=== PATIENT | female | born 1980 | race Caucasian/White ===

== ENCOUNTER → 2020-03-27 17:47 | Outpatient (CLI) | payer OTHER, SELFPAY ==
--- NOTE | ~2020-03-27 | MM_ITS ---
EXAMINATION: MM screening nir BI w emerald HISTORY: Screening TECHNIQUE: Craniocaudal and mediolateral oblique 3-D tomosynthesis images were obtained and synthetic 2-D images were generated. CAD analysis was submitted and interpreted. COMPARISON: No prior mammogram is available for comparison at this institution. BREAST PARENCHYMAL COMPOSITION: The breasts are heterogeneously dense, which may obscure small masses . FINDINGS: There is no evidence of suspicious mass, calcification, or architectural distortion to sugg est malignancy in either breast. There has been no suspicious interval change. IMPRESSION: 1. No mammographic evidence of malignancy. 2. Recommend routine screening mammography in one year. 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
== END ==
PROVIDERS: Visit Provider Emergency Medicine
DX: Z12.31 Encounter for screening mammogram for malignant neoplasm of breast (principal)
CPT/HCPCS: 77063; 77067

== ENCOUNTER 2020-04-19 00:41 | Outpatient (CLI) | payer OTHER, SELFPAY ==
[2020-04-19 21:25] LABS: SARS-CoV-2 RNA PCR Negative
== END 2020-04-19 00:42 | disposition home or self-care (01) ==
LOC: ANHCOVIDDT 00:42
PROVIDERS: PCP Emergency Medicine; Visit Provider Internal Medicine Gastroenterology
DX: Z01.812 Encounter for preprocedural laboratory examination (principal); Z20.828 Contact with and (suspected) exposure to other viral communicable diseases
CPT/HCPCS: 87635; C9803; U0003

== ENCOUNTER 2020-04-22 01:36 | Day surgery (SDC) | payer OTHER, SELFPAY ==
[2020-04-11 12:56] VITALS: BMI 35.2
[2020-04-22 09:10] VITALS: BP 129/67; PULSE 75; RESP 16; TEMP 36.4; O2SAT 100
[2020-04-22] MEDS: LACTATED RINGERS 1,000 ML 150 ML IV CONT (09:13)
--- NOTE | 2020-04-22 09:40 | WPDANESEPPF ---
Anes - Initial Pre Proc Eval Procedure: Operation Date: 04/22/20 11:00 Proposed Procedures p Colonoscopy - Brayden Pena MD Date/Time: 04/22/20 09:40 Surgeon: Brayden Pena MD Pre Op Diagnosis: constipation Patient Data Age: 40 Gender: F Height: 5 ft 7 in Weight: 102.9 kg Last Vital Signs Temp 97.5 F L 04/22/20 09:10 Pulse 75 04/22/20 09:10 Resp 16 04/22/20 09:10 BP 129/67 04/22/20 09:10 Pulse Ox 100 04/22/20 09:10 Allergies Allergy/AdvReac Type Severity Reaction Status Date / Time No Known Allergies Allergy Unknown Verified 04/22/20 09:09 Home Medications Medication Instructions Recorded Confirmed Type polyethylene glycol 3350 [Miralax] 17 g PO DAILY 04/11/20 04/11/20 History Patient hx anesthesia problems: none Family hx anesthesia problems: none [facility] Past Medical History Medical History (Updated 04/22/20 @ 09:14 by Twin Combs MD) GERD (gastroesophageal reflux disease) Family History Family History Father Diabetes mellitus Mother Hypertension Social History Social History Smoking packs per day: 1 Smoking cigarettes per day: 20.0 Years smoked: 15 Smoking pack-years: 15.00 Smoking status: Former smoker Tobacco type: cigarettes Second hand tobacco smoke exposure: No Alcohol intake: current Drinks per week: 1 Substance use: never Substance use type: does not use Living arrangements: with family Spiritual care concerns: No Anes - Eval Final PreProcedure Day of Procedure 04/22/20 09:40 Patient weight: overweight Heart: regular rate and rhythm Lungs: clear to auscultation Airway: Mallampati scale class II Neurological: alert and oriented Last oral intake: >/= 8 hours ASA classification: II Emergent: no Anesthetic plan: proceed Anesthesia type and monitoring: general GIVS and standard monitoring Informed Consent: The patient's anesthetic plan and its attendant risks and benefits were discussed with the patient/family/POA. Questions were solicited and answers provided to the satisfaction of the patient/family/POA.
--- NOTE | 2020-04-22 09:57 | PM.HPGS ---
History of Present Illness History of Present Illness Consent: Risks, benefits, and alternatives have been discussed and questions answered. Patient agrees to proceed with procedure. Chief complaint: constipation Narrative: Maria A Burkett is a 40 year old female with constipation, never had a colonoscopy. Mother with colon cancer. Review of Systems Constitutional: Constitutional: Denies headache(s) and Denies weakness Eyes: Eyes: Denies blurry vision ENT: Reports Normal hearing present, Denies headache(s) and Denies neck pain Cardiovascular: Cardiovascular: Denies chest pain and Denies dyspnea Respiratory: Respiratory: Denies dyspnea Gastrointestinal: Gastrointestinal: Reports no additional gastrointestinal complaints Genitourinary: Genitourinary: Denies dysuria Musculoskeletal: Musculoskeletal: Denies neck pain Integumentary/Breasts: Skin/Breast: Denies dry skin Neurologic: Reports Normal hearing present, Denies headache(s) and Denies weakness Psychiatric: Psychiatric: Denies anxiety Endocrine: Endocrine: Denies change in body appearance Hematologic/Lymphatic: Hematologic/Lymphatic: Denies easy bleeding Allergic/Immunologic: Allergic/Immunologic: Denies urticaria PMF Past Medical History Medical History (Updated 04/22/20 @ 09:58 by Brayden Pena MD) Constipation GERD (gastroesophageal reflux disease) Family History Family History Father Diabetes mellitus Mother Hypertension Social History Social History Smoking packs per day: 1 Smoking cigarettes per day: 20.0 Years smoked: 15 Smoking pack-years: 15.00 Smoking status: Former smoker Tobacco type: cigarettes Second hand tobacco smoke exposure: No Alcohol intake: current Drinks per week: 1 Substance use: never Substance use type: does not use Living arrangements: with family Spiritual care concerns: No Meds Home Medications and Allergies Home Medications Medication Instructions Recorded Confirmed Type polyethylene glycol 3350 [Miralax] 17 g PO DAILY 04/11/20 04/11/20 History Allergies Allergy/AdvReac Type Severity Reaction Status Date / Time No Known Allergies Allergy Unknown Verified 04/22/20 09:09 Vital Signs Vital Signs - 24 hr 04/22/20 09:10 Temperature 97.5 F L Pulse Rate 75 Respiratory Rate 16 Blood Pressure 129/67 Pulse Oximetry 100 Exam Const: General: comfortable and no acute distress HENMT: General nose exam: Normal nares present Eyes: General: appearance normal, both eyes and all related structures Neck: Neck: no JVD Resp: Auscultation: clear to auscultation bilaterally Cardio: Rate: regular rate Rhythm: regular rhythm GI: Inspection: non-distended GI Palp: Yes Soft to palpation Skin: General skin exam: normal color Neuro: General: gait normal Speech: normal speech Extrem: General: normal to inspection Psych: Mental Status: mental status grossly normal Assessment and Plan Assessment and plan (1) Constipation: Code(s): K59.00 - Constipation, unspecified Status: Acute Assessment and Plan: will proceed with colonoscopy
[2020-04-22 10:14] VITALS: BP 97/47; PULSE 68; RESP 20; O2SAT 100
[2020-04-22 10:24] VITALS: BP 91/44; PULSE 71; RESP 15; O2SAT 100
[2020-04-22 10:34] VITALS: BP 108/63; PULSE 71; RESP 19; O2SAT 100
== END 2020-04-22 10:56 | disposition home or self-care (01) ==
PROVIDERS: PCP Emergency Medicine; Visit Provider Internal Medicine Gastroenterology
PROC: 0DJD8ZZ Inspection of Lower Intestinal Tract, Via Natural or Artificial Opening Endoscopic (ICD-10-PCS; CPT 45378; principal; 2020-04-22 11:00)
DX: Z12.11 Encounter for screening for malignant neoplasm of colon (principal); K64.8 Other hemorrhoids; K59.00 Constipation, unspecified; Z80.0 Family history of malignant neoplasm of digestive organs; Z87.891 Personal history of nicotine dependence
CPT/HCPCS: 45378; J2704; J7120

== ENCOUNTER → 2021-03-31 10:04 | Outpatient (CLI) | payer OTHER, SELFPAY ==
--- NOTE | ~2021-03-31 | MM_ITS ---
EXAMINATION: MM screening nir BI w emerald HISTORY: Screening mammogram TECHNIQUE: Craniocaudal and mediolateral oblique 3-D tomosynthesis images were obtained and synthetic 2-D images were generated. CAD analysis was submitted and interpreted. COMPARISON: 03/2020 bilateral screening mammogram BREAST PARENCHYMAL COMPOSITION: There are scattered areas of fibroglandular density. FINDINGS: There is no evidence of suspicious mass, calcification, or architectural distortion to sugg est malignancy in either breast. There has been no suspicious interval change. IMPRESSION: 1. No mammographic evidence of malignancy. 2. Recommend routine screening mammography in one year. 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
== END ==
PROVIDERS: Visit Provider Obstetrics & Gynecology
DX: Z12.31 Encounter for screening mammogram for malignant neoplasm of breast (principal)
CPT/HCPCS: 77063; 77067

== ENCOUNTER → 2022-07-08 12:15 | Outpatient (CLI) | payer OTHER, SELFPAY ==
--- NOTE | ~2022-07-08 | MM_ITS ---
EXAMINATION: MM screening nir BI w emerald HISTORY: Screening mammogram TECHNIQUE: Craniocaudal and mediolateral oblique 3-D tomosynthesis images were obtained and synthetic 2-D images were generated. CAD analysis was submitted and interpreted. COMPARISON: 03/31/2021, 03/2020 bilateral screening mammogram examinations BREAST PARENCHYMAL COMPOSITION: There are scattered areas of fibroglandular density. FINDINGS: There is no evidence of suspicious mass, calcification, or architectural distortion to sugg est malignancy in either breast. There has been no suspicious interval change. IMPRESSION: 1. No mammographic evidence of malignancy. 2. Recommend routine screening mammography in one year. BI-RADS Category 1: Negative Reviewed, dictated and finalized at location A. SETTER HAND
== END ==
PROVIDERS: PCP Internal Medicine; Visit Provider Obstetrics & Gynecology
DX: Z12.31 Encounter for screening mammogram for malignant neoplasm of breast (principal)
CPT/HCPCS: 77063; 77067

== ENCOUNTER 2024-06-21 11:05 | Outpatient (CLI) | payer OTHER, SELFPAY ==
--- NOTE | ~2024-06-21 | MM_ITS ---
EXAMINATION: MM screening nir BI w emerald HISTORY: Screening TECHNIQUE: Craniocaudal and mediolateral oblique 3-D tomosynthesis images were obtained and synthetic 2-D images were generated. CAD analysis was submitted and interpreted. COMPARISON: Comparison to multiple prior studies sequentially, with oldest reviewed study dated 08/2019. BREAST PARENCHYMAL COMPOSITION: Not dense: There are scattered areas of fibroglandular density. FINDINGS: There is no evidence of suspicious mass, calcification, or architectural distortion to sugg est malignancy in either breast. There has been no suspicious interval change. IMPRESSION: 1. No mammographic evidence of malignancy. 2. Recommend routine screening mammography in one year. BI-RADS Category 1: Negative Reviewed, dictated and finalized at location A. 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
== END 2024-06-21 11:06 | disposition home or self-care (01) ==
LOC: MICIMG 11:06
PROVIDERS: PCP Internal Medicine; Visit Provider Obstetrics & Gynecology
DX: Z12.31 Encounter for screening mammogram for malignant neoplasm of breast (principal)
CPT/HCPCS: 77063; 77067

== ENCOUNTER 2024-07-28 01:13 | Day surgery (SDC) | payer OTHER, SELFPAY ==
[2024-07-21 13:52] VITALS: BMI 29.8
--- OUTSIDE RECORDS SUMMARY | 2024-07-28 01:18 | XMS_ITS | Encounter Summary ---
Author Organization [facility] - [facility] Address [address] [place] [address] Care Team Providers Care Bridal Service Sales And Management Name Role Phone Rachna Pruitt MD Primary Care Provider [phone] Encounter Details Date Type Department Care Team (Late st Contact Info) Description 01/29/2022 [facility] [employer] Message Enc [facility] - [address] [address] [address] [place] [address] [employer] Provider Lab results Social History Tobacco Use Types Packs/Day Years Used Date Smoking Tobacco: Never Smokeless Tobacco: Never Alcohol Use Standard Drinks/Week Comments Yes 0 (1 standard drink = 0.6 oz pur e alcohol) 1-2 drinks per month PHQ-2 Answer Date Recorded PHQ-2 Score - If the patient scores above 3, please move on to questions 3-9 0 01/16/2022 Comments No Sex and Gender Information Value Date Recorded Sex Assigned at Not on file Legal Sex Female 11:57 AM CDT Gender Identity Not on file Sexual Orientation Not on file COVID-19 Exposure Response Date Recorded In the last 10 days, have yo u been in contact with someone who was confirmed or suspected to have Coronavirus/COVID-19? No / Unsure 01/28/2022 7:26 AM CDT documented as of this encounter Plan of Treatment Not on file documented as of this encounter Visit Diagnoses Not on filedocumented in this encounter Care Teams Bridal Service Sales And Management Relationship Specialty Start Date End Date Rachna Pruitt MD [address] [place] [address] PCP - General INTERNAL MEDICINE 01/16/22 documented as of this encounter
--- OUTSIDE RECORDS SUMMARY | 2024-07-28 01:18 | XMS_ITS | Continuity of Care Document ---
Author Organization [facility] Address [address] [place] [address] Phone Care Team Providers Care Section Housekeeper Name Role Phone No Information Unavailable Unavailable Allergies, Adverse Reactions, Alerts Substance Reaction Status Criticality No Known Allergies Active No Inform ation Medications Medication Instructions Dosage Effective Dates (start - stop) Status Comments Mirena 20 mcg/24 hour (5 years) intrauterine device - Active Procedures Procedure Date Preven E&m Estab Pt; 18-39 Yr 7 Preven E&m Estab Pt; 18-39 Yr 5 Insrt Intrauterine Device Mirena IUD Preven E&m Estab Pt; 18-39 Yr 4 Venipuncture Hgb; Glycated Lipid Panel Thyroxine; Free General Health Panel Preven E&m Estab Pt; 18-39 Yr 4 Preven E&m Estab Pt; 18-39 Yr 3 Offic/outpt E&m Estab Mod-hi 2 12 Preven E&m Estab Pt; 18-39 Yr 2 General Health Panel Hgb; Glycated Lipid Panel Ua Dip Stick/tablet; Auto W/mi 12 Immuniz Admin; 1/combo Vacc/to 12 Venipuncture Thyroxine; Free Tdap Vaccine Init Preven E&m New Pt; 18-39 Yr 2011 Cytopath Cerv/vag Thin Prep; R 12 Offic/outpt E&m New Mod Sever 1 Advance Directives Directive Yes / No Effective Date File Name No Information Encounters Encounter Description Practice Location Reason(s) For Visit Diagnoses Date Provider Providers Copied on Encounter [facility], [address], [place], [place], [id number] , [place] tel: [phone] No Information 0 No Information Preven E&m Estab Pt; 18-39 Yr [facility], [address], [place], [place], [id number] , [place] tel: [phone] [facility] Encounter for gynecological examination without abnormal finding 7 Ishmael Santacruz. [address], [place], [address], [place]. [phone] Referring Provider: Seb Ruffin, [address], [place], [address]. tel:[phone] Preven E&m Estab Pt; 18-39 Yr [facility], [address], [place], [place], [id number] , [place] tel: [phone] [facility] Encounter for routine gynecological examination 5 Ishmael Neeta. [address], [place], [address], [place]. [phone] Referring Provider: Neeta Quiñones, [address], [place], [address]. tel:[phone] [facility], [address], [place], [place], [id number] , [place] tel:[phone] [facility] IUD (intrauterine device) in placeEncounter for IUD removal and reinsertion - 5 Ishmael Neeta. [address], [place], [address], [place]. tel:[phone] Referring Provider: Seb Ruffin, [address], [place], [address]. tel:[phone] Preven E&m Estab Pt; 18-39 Yr [facility], [address], [place], [place], [id number] , [place] tel: [phone] [facility] EXAM, GYNECOLOGICAL 4 Ishmael Neeta. [address], [place], [address], [place]. tel:[phone] Referring Provider: Seb Ruffin, [address], [place], [address]. tel:[phone] [facility], [address], [place], [place], [id number] , [place] tel: [phone] [facility] No Information 4 Gaurav Grigsby. [address], [place], [place], [address], [place]. tel:[phone] Referring Provider: Seb Ruffin, [address], [place], [address]. tel:[phone] Preven E&m Estab Pt; 18-39 Yr [facility], [address], [place], [place], [id number] , [place] tel: [phone] [facility] EXAM, GENERAL, ROUTINE 4 Gaurav Grigsby. [address], [place], [place], [address], [place]. tel:[phone] Referring Provider: Seb Ruffin, [address], [place], [address]. tel:[phone] Preven E&m Estab Pt; 18-39 Yr [facility], [address], [place], [place], [id number] , [place] tel: [phone] [facility] EXAM, GYNECOLOGICAL 7201 3 Ishmael Neeta. [address], [place], [address], [place]. tel:[phone] Referring Provider: Seb Ruffin, [address], [place], [address]. tel:[phone] Offic/outpt E&m Estab Mod-hi 2 [facility], [address], [place], [place], [id number] , [place] tel: [phone] [facility] SINUSITIS, UNSPECIFIED,(CHR ONIC)ONYCHOMYCOS IS Dec 2 Gaurav Grigsby. [address], [place], [place], [id number], [place]. tel:[phone] Referring Provider: Seb Ruffin, [address], [place], [address]. tel:[phone] Preven E&m Estab Pt; 18-39 Yr [facility], [address], [place], [place], [id number] , [place] tel: [phone] [facility] EXAM, GENERAL, ROUTINEOBESITY,U NSPECIFIEDVACCIN ATION, [DTP] [DtaP] 3-201 2 Gaurav Grigsby. [address], [place], [place], [id number], [place]. tel:[phone] Referring Provider: Seb Ruffin, [address] [place] [address] [address], [place], [address]. tel:[phone] Init Preven E&m New Pt; 18-39 Yr [facility], [address], [place], [place], [id number] , [place] tel: [phone] [facility] HTN,UNSPECIFIEDO BESITY,UNSPECIFI EDOBESITY,UNSPEC IFIEDEXAM, GYNECOLOGICALSCR EEN,CA CERVIXSTATUS POST NEUROPACEMAKER 9 2 Ishmael Neeta. [address], [place], [address], [place]. tel:[phone] Referring Provider: Seb Ruffin, [address], [place], [address]. tel:[phone] Offic/outpt E&m [facility], [address], [place], [place], [address] , [place] tel: [phone] [facility] OSTEOPENIAPITYRI ASIS VERSICOLOR 1 Gaurav Grigsby. [address], [place], [place], [address], [place]. tel:[phone] Referring Provider: Seb Ruffin, [address], [place], [address]. tel:[phone] Family History Family Member Type Diagnosis Age At Onset Grandparents Problem (finding) Heart Disease Father Problem (finding) Diabetes MAT Uncle Problem (finding) Heart Disease MAT Uncle Problem (finding) Hypertension Father Problem (finding) Diabetes Mother Problem (finding) Hypercholesterolemia Father Problem (finding) Hypertension Immunizations Vaccine Date Status Comments Tdap administered Note: Administe red by Sheeba Naylor LVN ; Source: New Immunization Record Payers Payer name Insurance type Covered green party ID Authoriza tion(s) No Information Social History Type Description Quantity Date Captured Comments Alcohol Use Details Unknown Caffeine Use Details 3 cups per day Tobacco Use Status No Information Smoking Status No Information Sex Female Sexual Orientation Straight or heterosexual Chief Complaint And Reason For Visit No Information Reason For Referral Reason For Referral No Information History Of Present Illness Encounter Date Complaint History Of Prese nt Illness No Information Functional Status Date Functional Assessmen t No Information Instructions Date Instruction Additional Infor mation No Information Assessments Type Assessment Date No Information Patient Care Teams Name Effective Dates (start - stop) Status Members No Information
--- OUTSIDE RECORDS SUMMARY | 2024-07-28 01:18 | XMS_ITS | Clinical Summary ---
Author Organization [facility] Address [address] [place] [address] Care Team Providers Care Manager Group Home Name Role Phone Rachna Pruitt MD Primary Care Provider [phone] Allergies No known active allergies Medications FIBER OR Take by mouth daily. Active Polyethylene Glycol 3350 (MIRALAX OR) Take by mouth daily. Active Levonorgestrel (LILETTA, 52 MG,) 20.1 MCG/DAY IUD Active omeprazole (PRILOSEC) 10 MG capsule Take 1 capsule (10 mg total) by mouth daily. Active vitamin D3, cholecalciferol , 125 mcg capsule Take 2 capsules (250 mcg total) by mouth daily. Active SEMAGLUTIDE, 1 MG/DOSE, SC Inject 1.5 mg into the skin once a week. Active Active Problems Problem Noted Date Diagnosed Date Constipation Obese Encounters Date Type Department Care Team Description 06/21/2024 Scan HEALTH INFO SRVCS Scanned, Doc Med Group Mammogram (SCAN) 06/05/2024 1:00 PM RN TEAM LEADER Office Visit [facility] Medical Group Multispecialty Care - [address] [place] [address] Rachna Priutt MD Physical (Pt has not been fasting. Declined flu shot ) 06/05/2024 Travel from Last 3 Months Immunizations Name Administration Dates Next Due PFIZER COVID-19 (ORIGINAL FO RMULATION, PURPLE CAP) mRNA, LNP-S, PF, 30 MCG/0.3 ML DOSE 09/29/2020,09/08/2020 Tdap (Adacel) 01/16/2022 Family History Medical History Relation Comments Diabetes Father Colon Cancer Mother Relation Status Comments Father Alive Mother Alive Social History Tobacco Use Types Packs/Day Years Used Date Smoking Tobacco: Never Smokeless Tobacco: Never Tobacco Cessation:Counseling Given: Yes Comments:counseled by Dr Pruitt Alcohol Use Standard Drinks/Week Comments Yes 0 (1 standard drink = 0.6 oz pur e alcohol) 1-2 drinks per month PHQ-2 Answer Date Recorded Patient Health Questionnaire-2 Score 0 06/05/2024 Comments No Sex and Gender Information Value Date Recorded Sex Assigned at Not on file Legal Sex Female 11:57 AM CDT Gender Identity Not on file Sexual Orientation Not on file Last Filed Vital Signs Vital Sign Reading Time Taken Comments Blood Pressure 117/61 06/05/2024 1:17 PM RN TEAM LEADER Pulse 80 06/05/2024 1:17 PM RN TEAM LEADER Temperature 36.4 C (97.5 F) 06/05/2024 1:17 PM RN TEAM LEADER Respiratory Rate 18 06/05/2024 1:17 PM RN TEAM LEADER Oxygen Saturation 100% 06/05/2024 1:17 PM RN TEAM LEADER Inhaled Oxygen Concentration - - Weight 89.3 kg (196 lb 12.8 oz) 06/05/2024 1:17 PM RN TEAM LEADER Height 170.2 cm (5' 7 ) 06/05/2024 1:17 PM RN TEAM LEADER Body Mass Index 30.82 06/05/2024 1:17 PM RN TEAM LEADER Plan of Treatment Health Maintenance Due Date Last Done Comments Cervical Cancer Screening Pa p Smear (Age 30 to 64) Every 3 Years 1979 Hepatitis B Vaccines (1 of 3 - 19+ 3-dose series) 1998 COVID-19 Vaccine (2023-2 5 season) 2024 09/29/2020, 09/08/2020 Annual Physical 06/05/2025 06/05/2024, 01/16/2022 Influenza Adult (#1) 2025 Postpon ed from 02/22/2024 (Patient Refused) PHQ-2 (Physician [place]) 06/05/2025 06/05/2024 Mammogram Screening 06/21/2026 06/21/2024, 07/08/2022 Cervical Cancer Screening Pa p with HPV Testing (Age 30 to 64) Every 5 Years 12/31/2026 12/31/2021 Cervical Cancer Screening with HPV 12/31/2026 Colorectal Cancer Screening Colonoscopy (10 Years) 04/22/2030 04/22/2020 DTaP, Tdap and Td Vaccines ( 2 - Td or Tdap) 01/17/2032 01/16/2022 Hepatitis C Completed 01/28/2022 PHQ-2 (Physician [place]) Completed 06/05/2024 HPV Vaccines Aged Out No longer eligi ble based on patient's age to complete this topic Meningococcal B Vaccine Aged Out No l onger eligible based on patient's age to complete this topic Meningococcal Vaccine Aged Out No elin darshana eligible based on patient's age to complete this topic Pneumococcal Vaccine: Pediatrics (0 to 5 Years) and At-Risk Patients (6 to 64 Years) Aged Out No longer eligible b ased on patient's age to complete this topic RSV Immunizations Under 20 Months Aged Out No longer eligible b ased on patient's age to complete this topic Procedures Procedure Name Priority Date/Time Associated Diagnosis Comments MAMMOGRAM GENERIC (SCAN ORDER) 06/21/2024 HEMOGLOBIN, GLYCOSYLATED Routine 06/05/2024 1:54 PM RN TEAM LEADER Annual physical exam General medical exam TSH W/REFLEX Routine 06/05/2024 1:54 PM RN TEAM LEADER Annual physical exam General medical exam LIPID PANEL Routine 06/05/2024 1:54 PM RN TEAM LEADER Annual physical exam General medical exam COMPREHENSIVE METABOLIC PANEL Routine 06/05/2024 1:54 PM RN TEAM LEADER Annual physical exam General medical exam CBC W/DIFF AUTOMATED Routine 06/05/2024 1:54 PM RN TEAM LEADER Annual physical exam General medical exam COLLECTION VENOUS BLOOD VENIPUNCTURE Routine 06/05/2024 1:44 PM RN TEAM LEADER Annual physical exam General medical exam URINALYSIS AUTO DIP Routine 06/05/2024 Annual physical exam General medical exam HEPATITIS C ANTIBODY Routine 01/28/2022 8:00 AM CDT Annual physical exam Encounter for medical examination to establish care General medical exam Screening for diabetes mellitus Encounter for hepatitis C screening test for low risk patient OUTSIDE CYTOPATH CERV/VAG INTERPRET (PAP) 12/31/2021 COLONOSCOPY GENERIC (SCAN ORDER) 04/22/2020 from Last 3 Months or Most Recently Relevant to Health Maintenance Results * MAMMOGRAM GENERIC (SCAN ORDER) (06/21/2024) Anatomical Region Laterality Modality Other 06/21/2024 Doc Med Group Scanned SCANNING Final Resu lt * TSH W/REFLEX (06/05/2024 1:54 PM RN TEAM LEADER) [facility] TSH 1.943 0.358 - 3.740 uIU/ML 06/06/2024 10:47 AM RN TEAM LEADER [facility] 06/05/2024 1:54 PM RN TEAM LEADER Rachna Pruitt MD LABORATORY Final Result Performing Organization Address [facility] Co de Phone Number [facility] [address] [place] [address], * (ABNORMAL) HEMOGLOBIN, GLYCOSYLATED (06/05/2024 1:54 PM RN TEAM LEADER) [facility] HGB A1C 5.5 4.5 - 6.2 % 06/06/2024 10:04 AM RN TEAM LEADER [facility] ESTIMATED AVG GLUCOSE 111(H) 74 - 106 MG/DL 06/06/2024 10:04 AM RN TEAM LEADER [facility] 06/05/2024 1:54 PM RN TEAM LEADER Rachna Pruitt MD LABORATORY Final Result Performing Organization Address City/[facility]/ZIP Co de Phone Number [facility] [address] [place] [address], [place] [phone] * (ABNORMAL) COMPREHENSIVE METABOLIC PANEL (06/05/2024 1:54 PM RN TEAM LEADER) [facility] SODIUM S/P/B 141 136 - 145 MMOL/L 06/06/2024 10:47 AM [facility] POTASSIUM S/P/B 4.0 3.5 - 5.1 MMOL/L 06/06/2024 10:47 AM [facility] CHLORIDE S/P/B 103 98 - 107 MMOL/L 06/06/2024 10:47 AM [facility] CO2 29.3 21 - 32 MMOL/L 06/06/2024 10:47 AM [facility] GLUCOSE 76 70 - 99 MG/DL 06/06/2024 10:47 AM [facility] BUN 11 7 - 18 MG/DL 06/06/2024 10:47 AM [facility] CREATININE S/P/B 0.90 0.55 - 1.02 MG/DL 06/06/2024 10:47 AM [facility] CALCIUM S/P/B 8.8 8.4 - 10.5 MG/DL 06/06/2024 10:47 AM [facility] BILIRUBIN TOTAL S/P/B 0.4 0.2 - 1.0 MG/DL 06/06/2024 10:47 AM [facility] ALKALINE PHOSPHATASE S/P/B 49 37 - 98 U/L 06/06/2024 10:47 AM [facility] AST 14(L) 15 - 37 U/L 06/06/2024 10:47 AM [facility] ALT 21 14 - 59 U/L 06/06/2024 10:47 AM [facility] TOTAL PROTEIN S/P/B 6.9 6.4 - 8.2 G/DL 06/06/2024 10:47 AM [facility] ALBUMIN S/P/B 4.2 3.4 - 5.0 G/DL 06/06/2024 10:47 AM [facility] ANION GAP 8.7 5 - 15 MMOL/L 06/06/2024 10:47 AM RN TEAM LEADER [facility] Comment:REFERENCE RANGE NOT ESTABLISHED OSMOLALITY (CALC) 290 MOSM/KG 025 10:47 AM [facility] Comment:REFERENCE RANGE NOT ESTABLISHED GFR ESTIMATE 80(L) >90 ML/MIN/1. 73 M2 06/06/2024 10:47 AM [facility] GFR NOTES GFR REFERENCE S: 06/06/2024 10:47 AM [facility] Comment: THE ESTIMATED GFR IS CALCULATED USING THE 2020 CKD-EPI EQUATION. THE FOLLOWING CATEGORIES FOR GRADING RENAL FUNCTION ARE RECOMMENDED BY THE INTERNATIONAL SOCIETY OF NEPHROLOGY (KDIGO 2012 CLINICAL PRACTICE GUIDELINE). G1,NORMAL OR HIGH: >89 ml/min/1.73 m2 G2,MILDLY DECREASED: 60-89 ml/min/1.73 m2 G3A,MILDLY TO MODERATELY DECREASED: 45-59 ml/min/1.73 m2 G3B,MODERATELY TO SEVERELY DECREASED: 30-44 ml/min/1.73 m2 G4,SEVERELY DECREASED: 15-29 ml/min/1.73 m2 G5,KIDNEY FAILURE: <15 ml/min/1.73 m2 06/05/2024 1:54 PM RN TEAM LEADER Rachna Pruitt MD LABORATORY Final Result [facility] [address] [place] [address], * (ABNORMAL) LIPID PANEL (06/05/2024 1:54 PM RN TEAM LEADER) CHOLESTEROL 199 <200 MG/DL 06/06/2024 10:47 AM RN TEAM LEADER [facility] TRIGLYCERIDES 60 <150 MG/DL 06/06/2024 10:47 AM RN TEAM LEADER [facility] HDL 61 >40 MG/DL 06/06/2024 10:47 AM [facility] LDL-C 126(H) <100 MG/DL 06/06/2024 10:47 AM RN TEAM LEADER [facility] VLDL CALCULATION 12 5 - 28 MG/DL 06/06/2024 10:47 AM RN TEAM LEADER [facility] CHOL/HDL RATIO 3.3 0.0 - 4.0 06/06/2024 10:47 AM RN TEAM LEADER [facility] LDL/HDL 2.1 0.41 - 2.13 06/06/2024 10:47 AM RN TEAM LEADER [facility] NON HDL CHOLESTEROL 138 <140 MG/DL 06/06/2024 10:47 AM RN TEAM LEADER [facility] 06/05/2024 1:54 PM RN TEAM LEADER Rachna Pruitt MD LABORATORY Final Result [facility] [address] [place] [address], * CBC W/DIFF AUTOMATED (06/05/2024 1:54 PM RN TEAM LEADER) WBC 7.71 4.00 - 10.80 x10'3/uL 06/05/2024 7:34 PM RN TEAM LEADER [facility] RBC 4.22 4.10 - 5.40 x10'6/uL 06/05/2024 7:34 PM RN TEAM LEADER [facility] HGB 12.7 12.0 - 16.0 G/DL 06/05/2024 7:34 PM RN TEAM LEADER [facility] HCT 37.5 36.0 - 47.0 % 06/05/2024 7:34 PM RN TEAM LEADER [facility] MCV 88.9 78.0 - 100.0 FL 06/05/2024 7:34 PM RN TEAM LEADER [facility] MCH 30.1 27.0 - 31.0 PG 06/05/2024 7:34 PM RN TEAM LEADER [facility] MCHC 33.9 33.0 - 36.0 G/DL 06/05/2024 7:34 PM [facility] RDW 11.5 11.5 - 14.5 % 06/05/2024 7:34 PM [facility] PLT 240 150 - 350 x10'3/uL 06/05/2024 7:34 PM [facility] MPV 10.4 7.4 - 10.4 FL 06/05/2024 7:34 PM [facility] DIFFERENTIAL TYPE AUTOMATED DIFFERENTIAL 06/05/2024 7:35 PM [facility] NEUTROPHILS % 56.2 % 06/05/2024 7:35 PM [facility] LYMPHOCYTES % 32.9 % 06/05/2024 7:35 PM [facility] MONOCYTES % 7.5 % 06/05/2024 7:35 PM [facility] EOSINOPHILS % 2.7 % 06/05/2024 7:35 PM [facility] BASOPHILS % 0.6 % 06/05/2024 7:35 PM [facility] IMMATURE GRANS % 0.1 % 06/05/2024 7:35 PM [facility] ABS. NEUTROPHILS 4.32 1.60 - 8.30 x10'3/uL 06/05/2024 7:35 PM [facility] ABS. LYMPHOCYTES 2.54 0.80 - 4.70 x10'3/uL 06/05/2024 7:35 PM [facility] ABS. MONOCYTES 0.58 0.00 - 1.50 x10'3/uL 06/05/2024 7:35 PM [facility] ABS. EOSINOPHILS 0.21 0.00 - 0.40 x10'3/uL 06/05/2024 7:35 PM [facility] ABS. BASOPHILS 0.05 0.00 - 0.20 x10'3/uL 06/05/2024 7:35 PM [facility] ABS. IMMATURE GRANULOCYTES 0.01 0.00 - 0.03 x10'3/uL 06/05/2024 7:35 PM RN TEAM LEADER -[facility] 06/05/2024 1:54 PM RN TEAM LEADER us Rachna Pruitt MD LABORATORY Final Result Performing Organization Address City/[facility]/ZIP Co de Phone Number -[facility] [address] [facility] [place] [address], [place] [phone] * URINALYSIS AUTO DIP (06/05/2024) COLOR (U) YELLOW YELLOW [address], [facility] TRANSPARENCY CLEAR CLEAR [address], [facility] GLUCOSE (U) NEGATIVE NEGATIVE MG/DL [address], [facility] BILIRUBIN (U) NEGATIVE NEGATIVE MG-[address], [facility] KETONES MG/DL (U) NEGATIVE NEGATIVE MG/DL [address], [facility] SPECIFIC GRAVITY (U) 1.010 1.001 - 1.035 MG[address], [facility] BLOOD (U) NEGATIVE NEGATIVE MG-[address], [facility] U PH 5.5 5.0 - 9.0 MG-[address], [facility] PROTEIN (U) NEGATIVE NEGATIVE mg/dL MG-[address], [facility] UROBILINOGEN 0.2 0.2 - 1.0 EU/dL = mg/dL MG-[address], [facility] NITRITES NEGATIVE NEGATIVE MG/DL MG-[address], [facility] LEUKOCYTES (U) NEGATIVE NEGATIVE MG-[address], [facility] URINE SPECIMEN OBTAINED BY CLEAN CATCH PROCEDURE / Unknown 06/05/2024 us Rachna Pruitt MD URINE ORDERABLES Final Result [address], [facility] [address] [place] [address], * HEPATITIS C AB ([facility] ONLY) (01/28/2022 8:00 AM CDT) HEPATITIS C AB NON-REACTI VE NON-REACT SRIDHAR 01/28/2022 9:49 PM CDT [facility] Comment: ANTIBODIES TO HCV NOT DETECTED. DOES NOT EXCLUDE THE POSSIBILITY OF EXPOSURE TO HCV. 01/28/2022 8:00 AM CDT us Rachna Pruitt MD LABORATORY Final Result [facility] [address] [place] [address], [place] [phone] [id number] * PAP SMEAR WITH HPV (12/31/2021) 12/31/2021 Narrative 12/31/2021 Ordered by an unspecified provider. us Documents Scanned SCANNING Final Result * COLONOSCOPY GENERIC (04/22/2020) 04/22/2020 Narrative 04/22/2020 Ordered by an unspecified provider. us Documents Scanned SCANNING Final Result from Last 3 Months or Most Recently Relevant to Health Maintenance Insurance Care Teams Manager Group Home Relationship Specialty Start Date End Date Naate, Nueki, MD [address] [address] PCP - General INTERNAL MEDICINE 01/16/22
--- OUTSIDE RECORDS SUMMARY | 2024-07-28 01:18 | XMS_ITS | Continuity of Care Document ---
Author Organization [facility] Address [address] [email or web address] [address] [place] [address] Phone Care Team Providers Care Ferryboat Helper Name Role Phone Nestor Carpenter MD Unavailable Unavailable Allergies, Adverse Reactions, Alerts Substance Reaction Status Criticality No Known Allergies Active No Inform ation Procedures Procedure Date PREV VISIT, NEW, AGE 40-64 OFFICE/OUTPATIENT VISIT, [facility] Advance Directives Directive Yes / No Effective Date File Name No Information Encounters Encounter Description Practice Location Reason(s) For Visit Diagnoses Date Provider Providers Copied on Encounter [facility], [address] [place], [place], [id number], tel:[phone] [facility] No Information 0 Jayden Baez. [address] [facility] [place], [place], [id number] , [place]. tel:[phone] PREV VISIT, NEW, AGE 40-64 [facility], [address] [place], [place], [id number], [place] tel:[phone] [facility] pHysical (chief complaint) Encounter for general adult medical exam w abnormal findingsConstipatio nAbnormal weight gain 0 Jayden Baez. [address] [facility] [place], [place], [id number] , [place]. tel:[phone] Family History Family Member Type Diagnosis Age At Onset Mother Problem PRe-DM Mother Problem colon CA at age 63 Father Problem Obesity Father Problem Diabetes mellitus type 2 Payers Payer name Insurance type Covered constitution party ID Authoriza tion(s) No Information Social History Type Description Quantity Date Captured Comments Alcohol Use Details Unknown Caffeine Use Details Unknown Tobacco Use Status No Information Smoking Status No Information Sex Female Chief Complaint And Reason For Visit No Information Plan Of Treatment Date Type Action Status Referral Ordered: COLONOSCOPY AND BIOPSY ordered Referral Ordered: MAMMOGRAM, SCREENING ordered History Of Present Illness Encounter Date Complaint History Of Prese nt Illness pHysical Pt needs annual physical. Pt has not had any lab done for several years. Pt has chronic constipation for 2-3 years .Pt still goes daily but she notices bloating and difficulty with BM and hard stool. Pt takes probiotics and fiber and she takes mag citrate almost daily to have BM .Pt denies any blood in stool .Pt denies any diarrhea Pt denies any GERd, nausea, vomiting, postprandial pain. Pt also notices 40 pounds weight gain during last two years .Pt denies any other complaints Instructions Date Instruction Additional Infor mation No Information Assessments Type Assessment Date No Information
--- OUTSIDE RECORDS SUMMARY | 2024-07-28 01:18 | XMS_ITS | Encounter Summary ---
Author Organization [facility] - [facility] / [facility] Address [address] [place] [address] Care Team Providers Care Body Bumper Name Role Phone Rachna Pruitt MD Primary Care Provider [phone] Encounter Details Date Type Department Care Team (Latest Contact Info) Description 03/17/2022 Tinkt Message Enc [facility] Medical Group Multispecialty Care - [address] [place] [address] Rachna Pruitt MD [address] [facility] [address] [place] [address] Follow up appt/meds Social History Tobacco Use Types Packs/Day Years Used Date Smoking Tobacco: Never Smokeless Tobacco: Never Comments:counseled by Dr Sita payton Alcohol Use Standard Drinks/Week Comments Yes 0 [...] on file Sexual Orientation Not on file documented as of this encounter Plan of Treatment Not on file documented as of this encounter Visit Diagnoses Not on filedocumented in this encounter Care Teams Body Bumper Relationship Specialty Start Date End Date Rachna Pruitt MD [address] [facility] [address] [place] [address] PCP - General INTERNAL MEDICINE 01/16/22 documented as of this encounter
[2024-07-28 07:35] VITALS: BP 122/72; PULSE 79; RESP 16; TEMP 36.3; O2SAT 100; BMI 29.7
[2024-07-28 07:43] LABS: BEDSIDEPREGUCG Negative (Negative)
[2024-07-28] MEDS: LACTATED RINGERS 1,000 ML 150 ML IV CONT (07:50)
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
[2024-07-28 09:06] VITALS: BP 89/46; PULSE 84; RESP 20; O2SAT 100
[2024-07-28 09:16] VITALS: BP 95/50; PULSE 84; RESP 21; O2SAT 100
[2024-07-28 09:26] VITALS: BP 103/53; PULSE 76; RESP 23; O2SAT 100
== END 2024-07-28 09:42 | disposition home or self-care (01) ==
PROVIDERS: Anesthesiology; PCP Internal Medicine; Referring Provider Internal Medicine; Visit Provider Internal Medicine Gastroenterology
PROC: 0DJD8ZZ Inspection of Lower Intestinal Tract, Via Natural or Artificial Opening Endoscopic (ICD-10-PCS; CPT 45378; principal; 2024-07-28 08:30)
DX: Z12.11 Encounter for screening for malignant neoplasm of colon (principal); Z80.0 Family history of malignant neoplasm of digestive organs; Z87.891 Personal history of nicotine dependence; F12.90 Cannabis use, unspecified, uncomplicated
CPT/HCPCS: 45378; J2003; J2704; J7120

== ENCOUNTER 2024-10-06 10:29 | Outpatient (CLI) | payer OTHER, SELFPAY ==
--- OUTSIDE RECORDS SUMMARY | 2024-10-06 10:34 | XMS_ITS | Encounter Summary ---
Author Organization [facility] Address [address] [place] [address] Care Team Providers Care Embosser Apprentice Name Role Phone Rachna Pruitt MD Primary Care Provider Encounter Details Date Type Department Care Team (Late st Contact Info) Description 01/29/2022 Intact Vascular Message Enc [facility] Medical Group Multispecialty Care - [address] [address] [address] [place] [address] [email or web address], [facility] Provider Lab results Social History Tobacco Use [...] on filedocumented in this encounter Care Teams Embosser Apprentice Relationship Specialty Start Date End Date Rachna Pruitt MD [address] [facility] [address] [place] [address] PCP - General INTERNAL MEDICINE 01/16/22 documented as of this encounter
--- OUTSIDE RECORDS SUMMARY | 2024-10-06 10:34 | XMS_ITS | Encounter Summary ---
Author Organization [facility] Address [address] [place] [address] Care Team Providers Care Neuropsychology Director Name Role Phone Rachna Pruitt MD Primary Care Provider [phone] Encounter Details Date Type Department Care Team (Latest Contact Info) Description 03/17/2022 [employer]hai Technology[employer] Message Enc [facility] Medical Group Multispecialty Care - [address] [place] [address] Rachna Pruitt MD [address] [facility] [address] [place] [address] Follow up appt/meds Social History [...] on filedocumented in this encounter Care Teams Neuropsychology Director Relationship Specialty Start Date End Date Rachna Pruitt MD [address] [facility] [address] [place] [address] PCP - General INTERNAL MEDICINE 01/16/22 documented as of this encounter
--- OUTSIDE RECORDS SUMMARY | 2024-10-06 10:34 | XMS_ITS | Clinical Summary ---
Author Organization [facility] Address [address] [place] [address] Care Team Providers Care Silk Opener Name Role Phone Rachna Pruitt MD Primary Care Provider [phone] Allergies No known active allergies Medications FIBER [...] Encounters Date Type Department Care Team Description 07/28/2024 Scan HEALTH INFO SRVCS Scanned, Doc Med Group Colonoscopy Report (SCAN); Lab (SCAN) from Last 3 Months Immunizations Immunization Administration Dates Next Due PFIZER COVID-19 (ORIGINAL [...] Comments Blood Pressure 117/61 06/05/2024 1:17 PM BOX CUTTER Pulse 80 06/05/2024 1:17 PM BOX CUTTER Temperature 36.4 C (97.5 F) 06/05/2024 1:17 PM BOX CUTTER Respiratory Rate 18 06/05/2024 1:17 PM BOX CUTTER Oxygen Saturation 100% 06/05/2024 1:17 PM BOX CUTTER Inhaled Oxygen Concentration - - Weight 89.3 kg (196 lb 12.8 oz) 06/05/2024 1:17 PM BOX CUTTER Height 170.2 cm (5' 7 ) 06/05/2024 1:17 PM BOX CUTTER Body Mass Index 30.82 06/05/2024 1:17 PM BOX CUTTER Plan of Treatment Health Maintenance Due Date Last Done Comments Cervical Cancer Screening Pa p Smear (Age 30 to 64) Every 3 Years 1979 Hepatitis B Vaccines (1 of 3 - 19+ 3-dose series) 1998 COVID-19 Vaccine (2023-2 5 season) 2024 09/29/2020, 09/08/2020 Annual Physical 06/05/2025 06/05/2024, 01/16/2022 Mammogram Screening 06/21/2026 06/21/2024, 07/08/2022 Cervical Cancer Screening Pa p with HPV Testing (Age 30 to 64) Every 5 Years 12/31/2026 12/31/2021 Cervical Cancer Screening wi th HPV 12/31/2026 DTaP, Tdap and Td Vaccines ( 2 - Td or Tdap) 01/17/2032 01/16/2022 Colorectal Cancer Screening Colonoscopy (10 Years) 07/28/2034 07/28/2024, 04/22/2020 Hepatitis C Completed 01/28/2022 PHQ-2 (Physician Ransom) Completed 06/05/2024 HPV Vaccines Aged Out No longer eligi ble based on patient's age to complete this topic Meningococcal B Vaccine Aged Out No l onger eligible based on patient's age to complete this topic Meningococcal Vaccine Aged Out No elin darshana eligible based on patient's age to complete this topic Pneumococcal Vaccine: Pediatrics (0 to 5 Years) and At-Risk Patients (6 to 49 Years) Aged Out No longer eligible b ased on patient's age to complete this topic RSV Immunizations Under 20 Months Aged Out No longer eligible b ased on patient's age to complete this topic Procedures Procedure Name Priority Date/Time Associated Diagnosis Comments OUTSIDE LAB (SCAN ORDER) 07/28/2024 COLONOSCOPY GENERIC (SCAN ORDER) 07/28/2024 MAMMOGRAM GENERIC (SCAN ORDER) 06/21/2024 HEPATITIS C ANTIBODY Routine 01/28/2022 8:00 AM CDT Annual physical exam Encounter for medical examination to establish care General medical exam Screening for diabetes mellitus Encounter for hepatitis C screening test for low risk patient OUTSIDE CYTOPATH CERV/VAG INTERPRET (PAP) 12/31/2021 from Last 3 Months or Most Recently Relevant to Health Maintenance Results * OUTSIDE LAB (SCAN ORDER) (07/28/2024) 07/28/2024 [facility] Scanned SCANNING Final Resu lt * COLONOSCOPY GENERIC (SCAN ORDER) (07/28/2024) 07/28/2024 [facility] Scanned SCANNING Final Resu lt * MAMMOGRAM GENERIC (SCAN ORDER) (06/21/2024) Anatomical Region Laterality Modality Other 06/21/2024 [facility] Scanned SCANNING Final Resu lt * HEPATITIS C AB ([facility] ONLY) (01/28/2022 8:00 AM CDT) HEPATITIS C AB NON-REACTI VE NON-REACT SRIDHAR 01/28/2022 9:49 PM CDT [facility] Comment: ANTIBODIES TO HCV NOT DETECTED. DOES NOT EXCLUDE THE POSSIBILITY OF EXPOSURE TO HCV. 01/28/2022 8:00 AM CDT Rachna Pruitt MD LABORATORY Final Result [facility] [address] [place] [address], [place] [phone] [id number] * PAP SMEAR WITH HPV (12/31/2021) 12/31/2021 Narrative 12/31/2021 Ordered by an unspecified provider. us Documents Scanned SCANNING Final Result from Last 3 Months or Most Recently Relevant to Health Maintenance Insurance [facility] Care Teams Silk Opener Relationship Specialty Start Date End Date Rachna Pruitt MD [address] [facility] [address] [place] [address] PCP - General INTERNAL MEDICINE 01/16/22
[2024-10-06 11:09] LABS: Hematocrit 39.1 % (37.0-47.0); Hemoglobin 12.5 g/dL (12.0-15.0); Mean Corpuscular Hemoglobin 29.8 pg (26-34); Mean Corpuscular Volume 93.3 fl (80-100); Mean Platelet Volume 10.1 fl (7.4-10.4); Platelet Count Result 201 k/mm3 (150-375); Red Blood Count 4.19 M/mm3 (4.2-5.4); Red Cell Distribution Width 11.9 % (11.5-14.5); White Blood Count 6.6 K/mm3 (4.5-10.0)
== END 2024-10-06 10:30 | disposition home or self-care (01) ==
LOC: ANHSURGERY 10:32
PROVIDERS: PCP Internal Medicine; Visit Provider Obstetrics & Gynecology
DX: Z30.2 Encounter for sterilization (principal)
CPT/HCPCS: 36415; 85027

== ENCOUNTER 2024-10-12 00:59 | Day surgery (SDC) | payer OTHER, SELFPAY ==
[2024-10-04 13:29] VITALS: BMI 29.0
--- NOTE | 2024-10-04 13:35 | PC.NURSE ---
Report to the Outpatient Waiting Room, entrance under the green pavilion located off [facility], at time _0630_ on date _[id number]_. Planned Procedure Time: _0830_.? Time changes happen often and if your time is changed the preop area will call you the afternoon before. - You and your visitor will be asked to self-screen and do not enter if you have any COVID symptoms. Please call surgeon if you need to reschedule. - A mask is optional within the hospital at this time. Patients may have clear liquids (water, carbonated beverages, clear teas, apple juice) until 3 hours prior to surgery with a maximum of 20 ounces. - No food from midnight until time of surgery and no smoking, or chewing tobacco (or any form of nicotine). No chewing gum, candy or mints. Take only the following medications with a SIP of water on the morning of surgery: ___None____ DO NOT STOP ANY OF YOUR OTHER PRESCRIPTION MEDICATIONS PRIOR TO SURGERY EXCEPT THE FOLLOWING Hold all vitamins and supplements for 3 days per anesthesiologist. Medications to discontinue per physician __Semaglutide skip this weeks dose. Date to take last dose Please no make-up, nail maltese, hairspray, perfume, deodorant, or body powder the day of surgery.? No jewelry (including any body piercings) or valuables the day of surgery, leave them at home.? Please take a shower or bath the night before, or the morning of, surgery with an antibacterial soap.? Wear comfortable, loose fitting clothing.? - Jewelry must be removed prior to entering the operating room.? Rings and piercings that are not removed may be cut off. - The hospital will not accept responsibility for valuables.? - Please leave all valuables, including medications, at home the day of surgery. If you are going home after surgery, a licensed furniture delivery driver must drive you home.? - NO public transportation without another adult if you receive anesthesia. - We recommend that an adult stay with you for 24 hours following discharge. - We also recommend that you do not drive, make important decision, drink alcoholic beverages, or take any drugs that were not prescribed by your health care provider for at least 24 hours after your discharge time. Follow any additional instructions given to you from your surgeon. Telephone instructions given to __Leanne___and asked if any additional questions and then verbalized understanding. Patient advised to call surgeon office or pre surgery nurse liaison [phone] if any additional questions.
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
[2024-10-12] VITALS (7 sets, daily range): BP systolic 103–115; BP diastolic 63–70; PULSE 67–89; RESP 8–18; TEMP 36.2–36.6; O2SAT 99–100
--- OUTSIDE RECORDS SUMMARY | 2024-10-12 01:01 | XMS_ITS | Continuity of Care Document ---
Author Organization [facility] Address [address] [place] [address] [place] [address] Phone Care Team Providers Care Billposting Supervisor Name Role Phone Nestor Carpenter MD Unavailable Unavailable Allergies, Adverse Reactions, Alerts Substance Reaction Status Criticality No Known Allergies Active No Inform ation Procedures Procedure Date PREV VISIT, NEW, AGE 40-64 OFFICE/OUTPATIENT VISIT, [facility] [place] Advance Directives Directive Yes / No Effective Date File Name No Information Encounters Encounter Description Practice Location Reason(s) For Visit Diagnoses Date Provider Providers Copied on Encounter [facility], [address] [place], [place], [id number], tel:[phone] [facility] No Information 0 Jayden Baez. [address] [facility] [place], [id number] , [place]. tel:[phone] PREV VISIT, NEW, AGE 40-64 [facility], [address] [place], [place], [address], [place] tel:[phone] [facility] pHysical (chief complaint) Encounter for general adult medical exam w abnormal findingsConstipatio nAbnormal weight gain 0 Jayden Baez. [address] [facility] [place], [address] , [place]. tel:[phone] Family History Family Member Type Diagnosis Age At Onset Mother Problem PRe-DM Mother Problem colon CA at age 63 Father Problem Obesity Father Problem Diabetes mellitus type 2 Payers Payer name Insurance type Covered alliance party ID Authoriza tion(s) No Information Social History Type Description Quantity Date Captured Comments Alcohol Use Details Unknown Caffeine Use Details Unknown Tobacco Use Status No Information Smoking Status No Information Sex Female Chief Complaint And Reason For Visit No Information Plan Of Treatment Date Type Action Status Referral Ordered: MAMMOGRAM, SCREENING ordered Referral Ordered: COLONOSCOPY AND BIOPSY ordered History Of Present Illness Encounter Date [...]
--- OUTSIDE RECORDS SUMMARY | 2024-10-12 01:01 | XMS_ITS | Continuity of Care Document ---
Author Organization [facility] Address [address] [place] [address] Phone Care Team Providers Care Semiconductor Wafers Etch Operator Name Role Phone No Information Unavailable Unavailable [...] Diagnoses Date Provider Providers Copied on Encounter [facility], [address], [place], [place], [id number] , [place] tel: [phone] No Information 0 No Information Preven E&m Estab Pt; 18-39 Yr [facility], [address], [place], [place], [id number] , [place] tel: [phone] [facility] Encounter for gynecological examination without abnormal finding 7 Ishmael Santacruz. [address], [place], [address], [place]. [phone] Referring Provider: Seb Ruffin, [address], [place], [address]. tel:[phone] Preven E&m Estab Pt; 18-39 Yr [facility], [address], [place], [place], [id number] , [place] tel: [phone] [facility] Encounter for routine gynecological examination 5 Ishmael Neeta. [address], [place], [address], [place]. [phone] Referring Provider: Neeta Quiñones, [address], [place], [address]. tel:[phone] [facility], [address], [place], [place], [id number] , [place] tel: [phone] [facility] IUD (intrauterine device) in placeEncounter for IUD removal and reinsertion - 5 Ishmael Neeta. [address], [place], [address], [place]. tel:[phone] Referring Provider: Seb Ruffin, [address], [place], [address]. tel:[phone] Preven E&m Estab Pt; 18-39 Yr [facility], [address], [place], [place], [id number] , [place] tel: [phone] [facility] EXAM, GYNECOLOGICAL 4 Ishmael Neeta. [address], [place], [address], [place]. tel:[phone] Referring Provider: Seb Ruffin, [address], [place], [address]. tel:[phone] [facility], [address], [place], [place], [id number] , [place] tel: [phone] [facility] No Information 4 Gaurav Grigsby. [address], [place], [place], [id number], [place]. tel:[phone] Referring Provider: Seb Ruffin, [address], [place], [address]. tel:[phone] Preven E&m Estab Pt; 18-39 Yr [facility], [address], [place], [place], [id number] , [place] tel: [phone] [facility] EXAM, GENERAL, ROUTINE 4 Gaurav Grigsby. [address], [place], [place], [id number], [place]. tel:[phone] Referring Provider: Seb Ruffin, [address], [place], [address]. tel:[phone] Preven E&m Estab Pt; 18-39 Yr [facility], [address], [place], [place], [id number] , [place] tel: [phone] [facility] EXAM, GYNECOLOGICAL 7201 3 Ishmael Neeta. [address], [place], [address], [place]. tel:[phone] Referring Provider: Seb Ruffin, [address], [place], [address]. tel:[phone] Offic/outpt E&m Estab Mod-hi 2 [facility], [address], [place], [place], [id number] , [place] tel: [phone] [facility] SINUSITIS, UNSPECIFIED,(CHR ONIC)ONYCHOMYCOS IS Dec 2 Gaurav Grigsby. [address], [place], [place], [id number], [place]. tel:[phone] Referring Provider: Seb Ruffin, [address], [place], [address]. tel:[phone] Preven E&m Estab Pt; 18-39 Yr [facility], [address], [place], [place], [address] , [place] tel: [phone] [facility] EXAM, GENERAL, ROUTINEOBESITY,U NSPECIFIEDVACCIN ATION, [DTP] [DtaP] 3-201 2 Gaurav Grigsby. [address], [place], [place], [id number], [place]. tel:[phone] Referring Provider: Seb Ruffin, [address] [place] [address] [address], [place], [address]. tel:[phone] Init Preven E&m New Pt; 18-39 Yr [facility], [address], [place], [place], [id number] , [place] tel: [phone] [facility] HTN,UNSPECIFIEDO BESITY,UNSPECIFI EDOBESITY,UNSPEC IFIEDEXAM, GYNECOLOGICALSCR EEN,CA CERVIXSTATUS POST NEUROPACEMAKER 9 2 Ishmael Neeta. [address], [place], [address], [place]. tel:[phone] Referring Provider: Seb Ruffin, [address], [place], [address]. tel:[phone] Offic/outpt E&m [facility], [address], [place], [place], [id number] , [place] tel: [phone] [facility] OSTEOPENIAPITYRI ASIS VERSICOLOR 1 Gaurav Grigsby. [address], [place], [place], [address], [place]. tel:[phone] Referring Provider: Seb Ruffin, [address], [place], [address]. tel:[phone] Family History Family Member Type Diagnosis Age [...]
--- NOTE | 2024-10-12 06:55 | WPDHPUPDATE1 ---
History and Physical Update Update Date/Time: 10/12/24 06:55 History and Physical has been reviewed, including an updated exam of the patient. There are NO changes in the patient's condition. Risks, benefits, and alternatives have been discussed and questions answered. Patient agrees to proceed with procedure.
[2024-10-12] MEDS: ACETAMINOPHEN 500 MG TABLET 1000 MG PO (07:30)
[2024-10-12] MEDS: KETOROLAC 15 MG/ML VIAL (*BKC) IV PUSH (07:30)
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
[2024-10-12] MEDS: SCOPOLAMINE 1 MG PATCH 1 PATCH TRANSDERM (07:52)
[2024-10-12 07:55] LABS: BEDSIDEPREGUCG Negative (Negative)
[2024-10-12] MEDS: LACTATED RINGERS 1,000 ML 30 ML IV CONT (09:09)
--- NOTE | 2024-10-12 09:17 | W.PM.PROC2 ---
Procedure Note - Detailed Date of Procedure 10/12/24 Pre-op Diagnosis 1. Retained IUD 2. Female sterilization Post-op Diagnosis Same Procedure Performed 1. IUD removal (hysteroscope not required) 2. Laparoscopic bilateral salpingectomy Surgeon Ming Penn MD Anesthesia General Findings IUD noted in the uterus with small string, pelvic anatomy without abnormality. Description of Procedure Patient prepped draped usual manner for this procedure. Short IUD string was noted on vaginal exam and IUD was readily removed in total. Attention was then placed to the abdomen a periumbilical skin incision was made and 2 lower quadrant 5mm trocar sites were made under direct visualization and the trocars were placed under direct visualization as well. Using the LigaSure instrument bilaterally the mesial salpinx cauterized and cut and the tube was removed in total. Gas was allowed to escape there was no bleeding evident, incisions were then approximated using 4-0 Monocryl. Patient sent covered in stable condition. Estimated Blood Loss 10 Drains No Packing No Pathology Yes Complications No immediate complications Condition Stable Disposition PACU [facility] Billing Surgery - Charge Forward: Surgery Billing
== END 2024-10-12 10:53 | disposition home or self-care (01) ==
PROVIDERS: PCP Internal Medicine; Visit Provider Obstetrics & Gynecology
PROC: 0U5B8ZZ Destruction of Endometrium, Via Natural or Artificial Opening Endoscopic (ICD-10-PCS; CPT 58563; principal; 2024-10-12 08:30)
PROC: (CPT 49320; 2024-10-12 08:30)
DX: Z30.2 Encounter for sterilization (principal); Z87.891 Personal history of nicotine dependence
CPT/HCPCS: 58661; 58301; 88302; A9270; J1100; J1885; J2250; J2270; J2405; J2704; J7120